=== PATIENT | female | born 1960 | race Caucasian/White ===

== ENCOUNTER → 2021-08-30 | Day surgery (SDC) | payer OTHER ==
[~2021-08-30] VITALS: Ht 165.1 cm; Wt 65.8 kg
[~2021-08-30] MED LIST: BENTYL10 MG PO; CENTRUM ADULTS1 EACH PO; MAG-OXIDE 400M400 MG PO; NP THYROID90 MG PO; OMEPRAZOLE 20MG20 MG PO; PEPCID AC20 MG PO; PROBIOTIC1 EACH PO; PROGESTERONE200 MG PO; PROMETHEGA12.5 MG/SU PR; SERTRALINE HCL50 MG PO; ZOFRAN8 MG PO
[2021-08-30 09:14] LABS: HCT 40.2 % (37.0-47.0); MCH 33.4 pg (25.0-31.0); MCHC 34.8 g/dL (32.0-36.0); MCV 95.9 fL (78.0-100.0); MPV 11.2 fL (6.0-9.5); RBC 4.19 M/uL (4.20-5.40); RDW 12.3 % (11.5-14.0)
[2021-08-30 09:46] LABS: ALBUMIN 3.6 g/dL (3.4-5.0); BILIRUBIN - TOTAL 0.4 mg/dL (0.2-1.0); BUN/CREAT RATIO (CALC) 23.4 RATIO; CREATININE 0.64 mg/dL (0.51-0.95); GLOBULIN (CALCULATION) 3.1 g/dL; POTASSIUM 4.1 mmol/L (3.5-5.1); TOTAL PROTEIN 6.7 g/dL (6.4-8.2)
== END | disposition home or self-care (01) ==
LOC: FAS 08:50
PROVIDERS: Surgery
DX: K29.70 Gastritis, unspecified, without bleeding (principal); K31.9 Disease of stomach and duodenum, unspecified; K21.9 Gastro-esophageal reflux disease without esophagitis; E03.9 Hypothyroidism, unspecified; D64.9 Anemia, unspecified; F41.9 Anxiety disorder, unspecified; Z88.2 Allergy status to sulfonamides; Z79.899 Other long term (current) drug therapy; Z90.49 Acquired absence of other specified parts of digestive tract
CPT/HCPCS: 36415; 80053; J2250; J2704; J7120